=== PATIENT | male | born 1990 | race Hispanic/Latino ===

== ENCOUNTER 2025-02-15 01:11 | Emergency (ER) | payer SELFPAY ==
[~2025-02-15] VITALS: Ht 175.3 cm; Wt 63.5 kg
[2025-02-15 01:20] VITALS: TEMP 98.8
[2025-02-15 02:21] LABS: EST GLOMERULAR FILTRATION RATE 83.0 ML/MIN (>=60)
[2025-02-15 02:56] LABS: BASOPHILS % 0.5 % (0.0-1.0); EOSINOPHILS % 1.0 % (0.0-6.0); LYMPHOCYTES % 25.9 % (18.0-39.1); MONOCYTES % 7.1 % (4.4-11.3); NEUTROPHILS % 65.3 % (38.7-80.0); RED CELL DISTRIBUTION WIDTH 12.4 % (11.7-14.4)
[2025-02-15 03:00] VITALS: PULSE 73; RESP 15
[2025-02-15 04:32] VITALS: BP 125/73; PULSE 74; RESP 18; TEMP 98.6; O2SAT 100
== END 2025-02-15 04:05 | disposition home or self-care (01) ==
LOC: ER 01:21
DX: M79.662 Pain in left lower leg (principal); M79.661 Pain in right lower leg; R25.2 Cramp and spasm; M79.89 Other specified soft tissue disorders; F41.9 Anxiety disorder, unspecified
CPT/HCPCS: 36415; 80053; 83735; 85025; 93970; 99284